=== PATIENT | male | born 1950 | race Caucasian/White ===

== ENCOUNTER 2018-10-29 13:04 | Observation (INO) ==
[2018-10-29] MEDS ORDERED: Ipratropium/Albuterol Neb 3 ML IH ONE (13:14)
[2018-10-29] MEDS ORDERED: predniSONE 20 MG TABLET PO ONE (13:14)
--- NOTE | 2018-10-29 13:17 | Emergency Department Note ---
Disposition Clinical Impression: Pneumonia, Congestive heart failure Disposition: Home, Self-Care Condition: Undetermined General Adult HPI - General Stated complaint: DEBBY Time Seen by Provider: 10/29/18 13:08 - Related Data Home Medications Medication Instructions Recorded Confirmed RX: Aspirin Enteric Coated 81 mg PO DAILY 09/04/15 10/29/18 [Aspirin EC] Simvastatin [Zocor] 40 mg PO HS 09/04/15 10/29/18 Levalbuterol Tartrate 2 puff IH Q4-6H 10/29/18 10/29/18 [Levalbuterol Tartrate Hfa] Metformin HCl 500 mg PO BID 10/29/18 10/29/18 RX: Sertraline [Zoloft] 100 mg PO DAILY 10/29/18 10/29/18 Rivaroxaban [Xarelto] 20 mg PO DAILY 10/29/18 10/29/18 Previous Rx's Medication Instructions Recorded RX: hydrOXYzine pamoate 50 mg PO TID PRN #15 cap 12/01/16 [HydrOXYzine Pamoate] RX: Metoprolol [Lopressor] 25 mg PO BID #60 tablet 10/16/18 RX: Omeprazole [PriLOSEC] 20 mg PO DAILY #30 cap 10/16/18 Allergies Allergy/AdvReac Type Severity Reaction Status Date / Time No Known Allergies Allergy Verified 06/19/17 08:19 Past Medical History - Past Medical History Medical history: Reports: arthritis, atrial fibrillation, diabetes, hyperlipidemia, myocardial infarction Surgical history: Reports: angioplasty/stent Psychiatric history: Reports: anxiety, depression - Social History Smoking Status: Current every day smoker Smokeless Tobacco Status: Yes Alcohol use: Reports: rarely Drug use: Reports: none Course Vital Signs Temperature 98.6 F 10/29/18 13:14 Pulse Rate 95 10/29/18 13:14 Respiratory Rate 18 10/29/18 13:14 Blood Pressure 122/91 10/29/18 13:14 O2 Sat by Pulse Oximetry 93 10/29/18 13:14 Temperature 98.1 F 10/29/18 17:30 Pulse Rate 115 10/29/18 17:30 Respiratory Rate 18 10/29/18 17:30 Blood Pressure 112/83 10/29/18 17:30 O2 Sat by Pulse Oximetry 90 10/29/18 17:30 Oxygen Delivery Oxygen Delivery Room Air Medical Decision Making - Lab Data Result diagrams: 10/29/18 13:23 10/29/18 13:23 Lab Results 10/29/18 10/29/18 10/29/18 Range/Units 13:20 13:20 13:23 WBC 10.4 (4.3-11.1) K/mcL RBC 4.15 L (4.19-5.50) M/mcL Hgb 12.9 (12.9-16.9) g/dL Hct 37.8 (37.5-50.1) % MCV 91.1 (83.0-100.0) fL MCH 31.1 (28.0-33.3) pg MCHC 34.1 (31.6-35.5) g/dL RDW 13.5 (11.5-14.5) % Plt Count 326 (140-400) K/mcL MPV 10.0 (9.4-12.4) fL Immature Gran % 0.4 (0-4) % Seg Neutrophils % 76.4 % Lymphocytes % 13.5 % Monocytes % 8.5 % Eosinophils % 0.7 % Basophils % 0.5 % Neutrophils # 8.0 (1.6-8.9) K/mcL Lymphocytes # 1.4 (0.6-4.6) K/mcL Monocytes # 0.9 (0.0-1.3) K/mcL Eosinophils # 0.1 (0.0-0.6) K/mcL Basophils # 0.1 (0.0-0.2) K/mcL D-Dimer 593 H (0-500) ng/mLFEU Sodium (136-145) mEq/L Potassium (3.5-5.1) mEq/L Chloride (98-107) mEq/L Carbon Dioxide (23-29) mEq/L BUN (8-23) mg/dL Creatinine (0.70-1.30) mg/dL Est GFR ( Amer) (> 60) Est GFR (Non-Af Amer) (> 60) BUN/Creatinine Ratio (6-26) Glucose (70-105) mg/dL Calculated Osmolality (280-300) Calcium (8.6-10.3) mg/dL Troponin I (< 0.04) ng/mL B-Natriuretic Peptide 671 H (Less than 100) pg/mL 12/01/18 Range/Units 13:23 WBC (4.3-11.1) K/mcL RBC (4.19-5.50) M/mcL Hgb (12.9-16.9) g/dL Hct (37.5-50.1) % MCV (83.0-100.0) fL MCH (28.0-33.3) pg MCHC (31.6-35.5) g/dL RDW (11.5-14.5) % Plt Count (140-400) K/mcL MPV (9.4-12.4) fL Immature Gran % (0-4) % Seg Neutrophils % % Lymphocytes % % Monocytes % % Eosinophils % % Basophils % % Neutrophils # (1.6-8.9) K/mcL Lymphocytes # (0.6-4.6) K/mcL Monocytes # (0.0-1.3) K/mcL Eosinophils # (0.0-0.6) K/mcL Basophils # (0.0-0.2) K/mcL D-Dimer (0-500) ng/mLFEU Sodium 129 L (136-145) mEq/L Potassium 4.6 (3.5-5.1) mEq/L Chloride 99 (98-107) mEq/L Carbon Dioxide 22 L (23-29) mEq/L BUN 20 (8-23) mg/dL Creatinine 0.84 (0.70-1.30) mg/dL Est GFR ( Amer) > 60 (> 60) Est GFR (Non-Af Amer) > 60 (> 60) BUN/Creatinine Ratio 24 (6-26) Glucose 135 H (70-105) mg/dL Calculated Osmolality 273 L (280-300) Calcium 9.1 (8.6-10.3) mg/dL Troponin I < 0.03 (< 0.04) ng/mL B-Natriuretic Peptide (Less than 100) pg/mL Attestation Statement - Attestation Attestation: I examined this patient and my medical decision-making was reviewed with the Resident Physician. I agree with the documented findings, disposition and treatment plan as described except to the extent set forth below. [id number] time provided Patient arrives complaining of dyspnea. He has a long-standing history of smoking. He is not oxygen dependent. He states the symptoms have been present for months and he has a primary care appointment as an outpatient but cannot wait. He appears in no acute distress on exam
--- NOTE | 2018-10-29 13:30 | Emergency Department Note ---
Disposition Clinical Impression: Pneumonia Qualifiers: Pneumonia type: due to unspecified organism Laterality: right Lung location: lower lobe of lung Qualified Code(s): J18.1 - Lobar pneumonia, unspecified organism Congestive heart failure Qualifiers: Heart failure type: unspecified Heart failure chronicity: unspecified Qualified Code(s): I50.9 - Heart failure, unspecified Disposition: Home, Self-Care Condition: Undetermined Time of Disposition: 17:01 SOB HPI - General Chief Complaint: ED Shortness of Breath/Dyspnea Stated Complaint: DEBBY Time Seen by Provider: 10/29/18 13:08 Source: patient Limitations: no limitations - History of Present Illness Patient is a 58-year-old male was recently diagnosed with A. fib was returned to the emergency room for shortness of breath. He states that his symptoms have been ongoing for 3 weeks. No acute changes recently. He states that he is unable to ambulate without getting severely short of breath. He states that he is a smoker and was told that he has COPD, recent start on inhaler. States that it is not helping. Denies any fevers or chills. He is on anticoagulation was relatively was A. zenon. Patient is currently not in acute respiratory distress. Denies any chest pain at this time, admits to palpitations. - Related Data Home Medications Medication Instructions Recorded Confirmed Aspirin Enteric Coated [Aspirin EC] 81 mg PO DAILY 09/04/15 10/29/18 Simvastatin [Zocor] 40 mg PO HS 09/04/15 10/29/18 Levalbuterol Tartrate 2 puff IH Q4-6H 10/29/18 10/29/18 [Levalbuterol Tartrate Hfa] Metformin HCl 500 mg PO BID 10/29/18 10/29/18 Rivaroxaban [Xarelto] 20 mg PO DAILY 10/29/18 10/29/18 Sertraline [Zoloft] 100 mg PO DAILY 10/29/18 10/29/18 Previous Rx's Medication Instructions Recorded hydrOXYzine pamoate [HydrOXYzine 50 mg PO TID PRN #15 cap 12/01/16 Pamoate] Metoprolol [Lopressor] 25 mg PO BID #60 tablet 10/16/18 Omeprazole [PriLOSEC] 20 mg PO DAILY #30 cap 10/16/18 Allergies Allergy/AdvReac Type Severity Reaction Status Date / Time No Known Allergies Allergy Verified 06/19/17 08:19 All systems ED: reviewed and negative except as stated. Past Medical History - Past Medical History Medical history: Reports: arthritis, atrial fibrillation, diabetes, hyperlipidemia, myocardial infarction Surgical history: Reports: angioplasty/stent Psychiatric history: Reports: anxiety, depression - Social History Smoking Status: Current every day smoker Smokeless Tobacco Status: Yes Alcohol use: Reports: rarely Drug use: Reports: none Physical Exam - General Limitations: no limitations General appearance: alert - Head Head exam: atraumatic - Eye Eye exam: Present: normal appearance - Neck Neck exam: Present: trachea midline - Chest Chest inspection: Present: normal inspection, symmetric chest wall rise - Respiratory Respiratory exam: Present: other (Audible lung sounds bilaterally, no wheezes rales or rhonchi.) - Cardiovascular Cardiovascular exam: Present: regular rate, normal rhythm, +S1, +S2 - Abdominal Exam Abdominal exam: Present: soft, Non-Tender - Extremities Exam Extremities exam: Present: normal inspection - Neurological Exam Neurological exam: Present: alert, oriented X3 - Psychiatric Psychiatric exam: Present: normal affect, normal mood - Skin Skin exam: Present: warm, dry, intact Course Course Narrative: 13:30 68-year-old male with recent diagnosed A. fib with RVR presenting to the emergency department for 3 week history of shortness of breath. This is unchanged from his previous visit. He has profound exertional dyspnea. Patient states that he has been diagnosed with COPD in the past recently started on an inhaler. He also states that he has had a history of MIs but does not know if he has CHF. No history of PEs or DVTs, no history of malignancy, and no history of recent surgery mobilization. Will obtain cardiac workup along with checking for BNP and a d-dimer as well patient will get a breathing treatment and we w ill assess for response. His saturations on room air were 93%, He is currently saturating well on room air. 14:02 Age-adjusted d-dimer is negative. Patient has a hyponatremia of 129. Pending BNP. 14:51 Chest x-ray shows effusion on the right, possible underlying pneumonia cannot be excluded. Patient will be admitted to the hospitalist service and started on antibiotics. 15:08 Hospitalist accepted the admission. Patient was started to desaturate into the upper 80s. He was placed on 2 L O2 via nasal cannula and his saturations increased. Vital Signs Temperature 98.6 F 10/29/18 13:14 Pulse Rate 95 10/29/18 13:14 Respiratory Rate 18 10/29/18 13:14 Blood Pressure 122/91 10/29/18 13:14 O2 Sat by Pulse Oximetry 93 10/29/18 13:14 Temperature 98.6 F 10/29/18 13:14 Pulse Rate 60 10/29/18 15:56 Respiratory Rate 18 10/29/18 15:56 Blood Pressure 116/92 10/29/18 15:56 O2 Sat by Pulse Oximetry 91 10/29/18 15:56 Oxygen Delivery Oxygen Delivery Room Air Shortness of Breath/Dyspnea - MDM Narrative Medical decision making narrative: 68-year-old male with recent onset A. fib present for increased shortness of breath. Patient was afebrile, hemodynamically stable, and saturating low 90s in the emergency department on room air. No leukocytosis on labs. Chest x-ray revealed vascular congestion, right-sided pleural effusion with possible underlying atelectasis versus pneumonia. Patient is given 40 IV Lasix and start antibiotic therapy. He was admitted to the hospital in stable condition. - Lab Data Result diagrams: 10/29/18 13:23 10/29/18 13:23 Lab Results 10/29/18 10/29/18 10/29/18 Range/Units 13:20 13:20 13:23 WBC 10.4 (4.3-11.1) K/mcL RBC 4.15 L (4.19-5.50) M/mcL Hgb 12.9 (12.9-16.9) g/dL Hct 37.8 (37.5-50.1) % MCV 91.1 (83.0-100.0) fL MCH 31.1 (28.0-33.3) pg MCHC 34.1 (31.6-35.5) g/dL RDW 13.5 (11.5-14.5) % Plt Count 326 (140-400) K/mcL MPV 10.0 (9.4-12.4) fL Immature Gran % 0.4 (0-4) % Seg Neutrophils % 76.4 % Lymphocytes % 13.5 % Monocytes % 8.5 % Eosinophils % 0.7 % Basophils % 0.5 % Neutrophils # 8.0 (1.6-8.9) K/mcL Lymphocytes # 1.4 (0.6-4.6) K/mcL Monocytes # 0.9 (0.0-1.3) K/mcL Eosinophils # 0.1 (0.0-0.6) K/mcL Basophils # 0.1 (0.0-0.2) K/mcL D-Dimer 593 H (0-500) ng/mLFEU Sodium (136-145) mEq/L Potassium (3.5-5.1) mEq/L Chloride (98-107) mEq/L Carbon Dioxide (23-29) mEq/L BUN (8-23) mg/dL Creatinine (0.70-1.30) mg/dL Est GFR ( Amer) (> 60) Est GFR (Non-Af Amer) (> 60) BUN/Creatinine Ratio (6-26) Glucose (70-105) mg/dL Calculated Osmolality (280-300) Calcium (8.6-10.3) mg/dL Troponin I (< 0.04) ng/mL B-Natriuretic Peptide 671 H (Less than 100) pg/mL 10/29/18 Range/Units 13:23 WBC (4.3-11.1) K/mcL RBC (4.19-5.50) M/mcL Hgb (12.9-16.9) g/dL Hct (37.5-50.1) % MCV (83.0-100.0) fL MCH (28.0-33.3) pg MCHC (31.6-35.5) g/dL RDW (11.5-14.5) % Plt Count (140-400) K/mcL MPV (9.4-12.4) fL Immature Gran % (0-4) % Seg Neutrophils % % Lymphocytes % % Monocytes % % Eosinophils % % Basophils % % Neutrophils # (1.6-8.9) K/mcL Lymphocytes # (0.6-4.6) K/mcL Monocytes # (0.0-1.3) K/mcL Eosinophils # (0.0-0.6) K/mcL Basophils # (0.0-0.2) K/mcL D-Dimer (0-500) ng/mLFEU Sodium 129 L (136-145) mEq/L Potassium 4.6 (3.5-5.1) mEq/L Chloride 99 (98-107) mEq/L Carbon Dioxide 22 L (23-29) mEq/L BUN 20 (8-23) mg/dL Creatinine 0.84 (0.70-1.30) mg/dL Est GFR ( Amer) > 60 (> 60) Est GFR (Non-Af Amer) > 60 (> 60) BUN/Creatinine Ratio 24 (6-26) Glucose 135 H (70-105) mg/dL Calculated Osmolality 273 L (280-300) Calcium 9.1 (8.6-10.3) mg/dL Troponin I < 0.03 (< 0.04) ng/mL B-Natriuretic Peptide (Less than 100) pg/mL - EKG Data EKG attestation: Yes I reviewed and interpreted this EKG. EKG results narrative: EKG shows A. fib with a heart rate of 94. There is low voltage complexes in the extremity leads. Late R-wave progression. There is a left bundle branch block. No significant concordance or discordance. No acute ST elevations. There is ST depressions present in leads V5 and V6. There are unchanged from previous EKG. All EKG findings similar to previous EKG.
[2018-10-29 13:38] LABS: Basophils # 0.1 K/mcL (0.0-0.2); Basophils % 0.5 %; Eosinophils # 0.1 K/mcL (0.0-0.6); Eosinophils % 0.7 %; Hematocrit 37.8 % (37.5-50.1); Hemoglobin 12.9 g/dL (12.9-16.9); Immature Granulocytes % 0.4 % (0-4); Lymphocytes # 1.4 K/mcL (0.6-4.6); Lymphocytes % 13.5 %; Mean Corpuscular HGB Conc 34.1 g/dL (31.6-35.5); Mean Corpuscular Hemoglobin 31.1 pg (28.0-33.3); Mean Corpuscular Volume 91.1 fL (83.0-100.0); Monocytes # 0.9 K/mcL (0.0-1.3); Monocytes % 8.5 %; Platelet Count 326 K/mcL (140-400); Red Blood Count 4.15 M/mcL (4.19-5.50); Red Cell Distribution Width 13.5 % (11.5-14.5); Segmented Neutrophils % 76.4 %
[2018-10-29 14:00] LABS: BUN/Creatinine Ratio 24 (6-26); Blood Urea Nitrogen 20 mg/dL (8-23); Calcium 9.1 mg/dL (8.6-10.3); Carbon Dioxide 22 mEq/L (23-29); Chloride 99 mEq/L (98-107); Glucose 135 mg/dL (70-105); Osmolality,Calculated 273 (280-300); Potassium 4.6 mEq/L (3.5-5.1); Sodium 129 mEq/L (136-145); Troponin I < 0.03 ng/mL (< 0.04); eGFR For Non-African Americans > 60 (> 60)
[2018-10-29] MEDS ORDERED: cefTRIAXone 1,000 MG in Water for inj. (sterile) 20 ML 10 ML IVP ONE (14:07)
[2018-10-29] MEDS ORDERED: Azithromycin 500 MG in D5% in Water 250 ML IVPB ONE (14:07)
[2018-10-29] MEDS ORDERED: Furosemide 40 MG/4 ML VIAL IVP ONE (14:53)
[2018-10-29] MEDS ORDERED: hydrOXYzine pamoate 25 MG CAPSULE PO PRN (15:38)
[2018-10-29] MEDS ORDERED: Dextrose Gel 15 GM/37.5 ML TUBE PO PRN ×2 (16:08)
[2018-10-29] MEDS ORDERED: D5% in Water 1,000 ML IVC PRN (16:08)
[2018-10-29] MEDS ORDERED: *HR* Dextrose 50 % in Water (Syg) 50 ML SYRINGE IVP PRN (16:08)
[2018-10-29] MEDS ORDERED: traMADol 50 MG TABLET PO PRN (16:09)
[2018-10-29] MEDS ORDERED: Naloxone 0.4 MG/ML INJ IVP PRN (16:09)
[2018-10-29] MEDS ORDERED: Acetaminophen 325 MG TABLET PO PRN (16:09)
[2018-10-29] MEDS ORDERED: *HR* Rivaroxaban 10 MG TABLET PO SCH (17:00)
--- NOTE | 2018-10-29 17:44 | Internal Med History&Physical ---
Date of Encounter: 10/29/18 Time of Encounter: 17:42 Internal Medicine - H&P: HPI Admitted From: Home Plans for Post Hospital Care: Home History of present illness: Mr. Hernandez is a 68 year old male Past Med Surg Social Fam HX - Past Medical History Medical history: arthritis, atrial fibrillation, diabetes, hyperlipidemia, myocardial infarction Additional medical history: DC Xs 3 Psychiatric history: anxiety, depression - Past Surgical History Surgical History: angioplasty/stent Additional surgical history: Stent Xs 2 - Social History Smoking Status: Current every day smoker Smokeless Tobacco Status: Yes Alcohol use: rarely Drug use: none Internal Medicine - H&P: Meds Aspirin Enteric Coated [Aspirin EC] 81 mg PO DAILY 09/04/15 [History] Simvastatin [Zocor] 40 mg PO HS 09/04/15 [History] hydrOXYzine pamoate [HydrOXYzine Pamoate] 50 mg PO TID PRN #15 cap 12/01/16 [Rx] Metoprolol [Lopressor] 25 mg PO BID #60 tablet 10/16/18 [Rx] Omeprazole [PriLOSEC] 20 mg PO DAILY #30 cap 10/16/18 [Rx] Levalbuterol Tartrate [Levalbuterol Tartrate Hfa] 2 puff IH Q4-6H 10/29/18 [History] Metformin HCl 500 mg PO BID 10/29/18 [History] Rivaroxaban [Xarelto] 20 mg PO DAILY 10/29/18 [History] Sertraline [Zoloft] 100 mg PO DAILY 10/29/18 [History] Allergy/AdvReac Type Severity Reaction Status Date / Time No Known Allergies Allergy Verified 06/19/17 08:19 All Systems PM: A 10-system review of systems was performed and is negative for pertinent find ings except as documented above in the HPI. Review of systems: REVIEW OF SYSTEMS: CONSTITUTIONAL: No weight loss, fever, chills, weakness or fatigue. HEENT: Eyes: No visual loss, blurred vision, double vision or yellow sclerae. Ears, Nose, Throat: No hearing loss, sneezing, congestion, runny nose or sore throat. SKIN: No rash or itching. CARDIOVASCULAR: No chest pain, chest pressure or chest discomfort. No palpitations or edema. RESPIRATORY: see HPI. GASTROINTESTINAL: No anorexia, nausea, vomiting or diarrhea. No abdominal pain or blood. GENITOURINARY: No dysuria, urgency, or frequency. NEUROLOGICAL: No headache, dizziness, syncope, paralysis, ataxia, numbness or tingling in the extremities. No change in bowel or bladder control. MUSCULOSKELETAL: No muscle, back pain, joint pain or stiffness. HEMATOLOGIC: No anemia, bleeding or bruising. LYMPHATICS: No enlarged nodes. No history of splenectomy. PSYCHIATRIC: No history of depression or anxiety. ENDOCRINOLOGIC: No reports of sweating, cold or heat intolerance. No polyuria or polydipsia. - Constitutional Vitals: Temp Pulse Resp BP Pulse Ox 98.1 F 115 18 112/83 90 10/29/18 17:30 10/29/18 17:30 10/29/18 17:30 10/29/18 17:30 10/29/18 17:30 General appearance: Present: cooperative, A&O X 3, answers questions appropriately Exam: PHYSICAL EXAMINATION: GENERAL APPEARANCE: The patient is alert, oriented and in no acute distress. HEENT: Head is normocephalic. The sinuses are nontender. Pupils are equal and reactive. The nares are patent. Oropharynx clear without lesions. NECK: Supple without lymphadenopathy. HEART: Regular rate and rhythm. LUNGS: decreased breathing sound on the right side. ABDOMEN: Soft, nontender, nondistended with good bowel sounds heard. Inguinal area is normal. EXTREMITIES: Without cyanosis, clubbing or edema. NEUROLOGICAL: Gross nonfocal. SKIN: Warm and dry without any rash. Internal Med - H&P Results - Labs CBC & Chem 7: 10/29/18 13:23 10/29/18 13:23 Labs: Short CBC 10/29/18 Range/Units 13:23 WBC 10.4 (4.3-11.1) K/mcL Hgb 12.9 (12.9-16.9) g/dL Hct 37.8 (37.5-50.1) % Plt Count 326 (140-400) K/mcL Neutrophils # 8.0 (1.6-8.9) K/mcL BMP 10/29/18 13:23 Sodium 129 L Potassium 4.6 Chloride 99 Carbon Dioxide 22 L BUN 20 Creatinine 0.84 Glucose 135 H Calcium 9.1 Cardiac Enzymes 10/29/18 Range/Units 13:23 Troponin I < 0.03 (< 0.04) ng/mL - Impressions ITS Impressions Chest X-Ray 10/29/18 13:13 IMPRESSION: 1. New, moderate right pleural effusion with associated consolidation in the right lung base. This is likely related to atelectasis, however, pneumonia cannot be excluded. 2. Increased pulmonary vascular congestion with stable cardiomegaly. D/ / 10/29/2018 14:24:42 Rubio Streeter MD / lilo Interpreting Provider: Rubio Streeter MD - Assessment and plan (1) Pneumonia Current Visit: Yes Status: Acute Assessment and plan: 68-year-old male current smoker presented with dyspnea and a cough for the past 3 weeks. Chest x-ray at the ED revealed right-sided consolidation with moderate amount of pleural effusion. Pneumonia was suspected, patient was started on IV azithromycin plus Rocephin. Qualifiers: Pneumonia type: due to unspecified organism Laterality: right Lung location: lower lobe of lung Qualified Code(s): J18.1 - Lobar pneumonia, unspecified organism (2) Congestive heart failure Current Visit: Yes Status: Suspected Assessment and plan: There is no CHF diagnoses on patient documentation. However, BNP was elevated, patient also has symptoms of CHF including congestion, dyspnea on exertion, pleural effusion, mild pitting edema on both lower extremities. We will check echocardiogram. Start patient on Lasix with twice a day dose. Qualifiers: Heart failure type: unspecified Heart failure chronicity: unspecified Qualified Code(s): I50.9 - Heart failure, unspecified (3) A-fib Current Visit: No Status: Chronic Assessment and plan: Rate controlled, continue home medication metoprolol, continue with Xarelto. Qualifiers: Atrial fibrillation type: chronic Qualified Code(s): I48.2 - Chronic atrial fibrillation (4) Diabetes mellitus Current Visit: No Status: Chronic Assessment and plan: Insulin SS, hold Metformin. Qualifiers: Diabetes mellitus type: type 2 Diabetes mellitus long term acute care registered nurse insulin use: without long term acute care registered nurse use Diabetes mellitus complication status: without complication Qualified Code(s): E11.9 - Type 2 diabetes mellitus without complications (5) Smoker Current Visit: No Status: Chronic (6) COPD (chronic obstructive pulmonary disease) Current Visit: No Status: Chronic Assessment and plan: continue home meds. Qualifiers: COPD type: unspecified COPD Qualified Code(s): J44.9 - Chronic obstructive pulmonary disease, unspecified (7) DVT prophylaxis Current Visit: Yes Status: Acute Assessment and plan: continue Xarelto. - Time Spent With Patient Total time spent is greater than 50% in coordination of care (as documented) at patient's floor/unit and/or counseling patient: Greater than 35 minutes
[2018-10-29] MEDS: Insulin LISPRO 300 UNITS/3 ML VIAL SQ SCH ×2 (18:02→22:08)
[2018-10-29] MEDS: Furosemide 20 MG/2 ML VIAL IVP SCH (21:46)
[2018-10-30 03:11] LABS: Basophils % 0.1 %; Hematocrit 39.9 % (37.5-50.1); Hemoglobin 13.5 g/dL (12.9-16.9); Immature Granulocytes % 0.4 % (0-4); Lymphocytes # 0.7 K/mcL (0.6-4.6); Lymphocytes % 6.6 %; Mean Corpuscular HGB Conc 33.8 g/dL (31.6-35.5); Mean Corpuscular Hemoglobin 30.8 pg (28.0-33.3); Mean Corpuscular Volume 91.1 fL (83.0-100.0); Mean Platelet Volume 10.3 fL (9.4-12.4); Monocytes # 0.6 K/mcL (0.0-1.3); Monocytes % 5.4 %; Neutrophils # 9.6 K/mcL (1.6-8.9); Platelet Count 344 K/mcL (140-400); Red Blood Count 4.38 M/mcL (4.19-5.50); Red Cell Distribution Width 13.2 % (11.5-14.5); Segmented Neutrophils % 87.5 %
[2018-10-30] MEDS: cefTRIAXone 2,000 MG in 0.9 % Sodium Chloride Mini Bag 100 ML IVPB SCH ×2 (03:15→15:22)
[2018-10-30 03:25] LABS: BUN/Creatinine Ratio 24 (6-26); Blood Urea Nitrogen 24 mg/dL (8-23); Calcium 9.3 mg/dL (8.6-10.3); Carbon Dioxide 26 mEq/L (23-29); Chloride 94 mEq/L (98-107); Glucose 258 mg/dL (70-105); Osmolality,Calculated 283 (280-300); Potassium 4.3 mEq/L (3.5-5.1); Sodium 130 mEq/L (136-145); eGFR For Non-African Americans > 60 (> 60)
[2018-10-30] MEDS ORDERED: Perflutren Lipid Microsphere 1.3 ML in 0.9 % Sodium Chloride 8.7 ML IVP ONE ×2 (07:43→08:15)
[2018-10-30] MEDS: Aspirin Enteric Coated 81 MG Tablet PO SCH (09:21)
[2018-10-30] MEDS: Insulin LISPRO 300 UNITS/3 ML VIAL SQ SCH ×4 (09:21→22:36)
[2018-10-30] MEDS: Furosemide 20 MG/2 ML VIAL IVP SCH ×2 (09:21→22:26)
[2018-10-30] MEDS: *HR* Rivaroxaban 10 MG TABLET PO SCH (09:21)
--- NOTE | 2018-10-30 13:46 | Internal Med Progress Note ---
Hospitalist Progress Note - Encounter Date of Encounter: 10/30/18 Time of Encounter: 13:44 - Subjective Interval History: Pt cough and sob have improved. - Exam Vitals: Temp Pulse Resp BP Pulse Ox 97.7 F 98 18 102/60 95 10/30/18 10:52 10/30/18 10:52 10/30/18 10:52 10/30/18 10:52 10/30/18 10:52 Exam: PHYSICAL EXAMINATION: GENERAL APPEARANCE: The patient is alert, oriented and in no acute distress. HEENT: Head is normocephalic. The sinuses are nontender. Pupils are equal and reactive. The nares are patent. Oropharynx clear without lesions. NECK: Supple without lymphadenopathy. HEART: Regular rate and rhythm. LUNGS: decreased breathing sound on the right side. ABDOMEN: Soft, nontender, nondistended with good bowel sounds heard. Inguinal area is normal. EXTREMITIES: Without cyanosis, clubbing or edema. NEUROLOGICAL: Gross nonfocal. SKIN: Warm and dry without any rash. - Assessment and Plan (1) Pneumonia Current Visit: Yes Status: Acute Assessment and Plan: 68-year-old male current smoker presented with dyspnea and a cough for the past 3 weeks. Chest x-ray at the ED revealed right-sided consolidation with moderate amount of pleural effusion. Pneumonia was suspected, continue IV azithromycin plus Rocephin. (2) Congestive heart failure Current Visit: Yes Status: Suspected Assessment and Plan: There is no CHF diagnosed on patient documentation. However, BNP was elevated, patient also has symptoms of CHF including congestion, dyspnea on exertion, pleural effusion, mild pitting edema on both lower extremities. We will check echocardiogram. Start patient on Lasix with twice a day dose. (3) A-fib Current Visit: No Status: Chronic Assessment and Plan: Rate controlled, continue home medication metoprolol, continue with Xarelto. (4) Diabetes mellitus Current Visit: No Status: Chronic Assessment and Plan: Insulin SS, hold Metformin. (5) Smoker Current Visit: No Status: Chronic Assessment and Plan: smoking cessation discussed with patient. (6) COPD (chronic obstructive pulmonary disease) Current Visit: No Status: Chronic Assessment and Plan: continue home meds. (7) DVT prophylaxis Current Visit: Yes Status: Acute Assessment and Plan: continue Xarelto. - Time Spent with Patient Total time spent is greater than 50% in coordination of care (as documented) at patient's floor/unit and/or counseling patient: Greater than 35 minutes Plan of Care Discussed with: patient Internal Medicine: Result - Labs CBC & Chem 7: 10/30/18 02:44 10/30/18 02:44 Labs: Short CBC 10/30/18 Range/Units 02:44 WBC 11.0 (4.3-11.1) K/mcL Hgb 13.5 (12.9-16.9) g/dL Hct 39.9 (37.5-50.1) % Plt Count 344 (140-400) K/mcL Neutrophils # 9.6 H (1.6-8.9) K/mcL BMP 10/29/18 10/30/18 13:23 02:44 Sodium 129 L 130 L Potassium 4.6 4.3 Chloride 99 94 L Carbon Dioxide 22 L 26 BUN 20 24 H Creatinine 0.84 1.01 Glucose 135 H 258 H Calcium 9.1 9.3 Cardiac Enzymes 10/29/18 Range/Units 13:23 Troponin I < 0.03 (< 0.04) ng/mL - ABG Interpretation ABG results: PT/INR, D-dimer D-Dimer 593 ng/mLFEU (0-500) H 10/29/18 13:20 - Impressions Impressions Chest X-Ray 10/29/18 13:13 IMPRESSION: 1. New, moderate right pleural effusion with associated consolidation in the right lung base. This is likely related to atelectasis, however, pneumonia cannot be excluded. 2. Increased pulmonary vascular congestion with stable cardiomegaly. D/ / 10/29/2018 14:24:42 Rubio Streeter MD / lilo Interpreting Provider: Rubio Streeter MD Consult Discharge Plan - Plan Referrals: Ata Hodges MD [Primary Care Provider] - (1) Pneumonia Qualifiers: Pneumonia type: due to unspecified organism Laterality: right Lung location: lower lobe of lung Qualified Code(s): J18.1 - Lobar pneumonia, unspecified organism (2) Congestive heart failure Qualifiers: Heart failure type: unspecified Heart failure chronicity: unspecified Qualified Code(s): I50.9 - Heart failure, unspecified (3) A-fib Qualifiers: Atrial fibrillation type: chronic Qualified Code(s): I48.2 - Chronic atrial fibrillation (4) Diabetes mellitus Qualifiers: Diabetes mellitus type: type 2 Diabetes mellitus long term care administrator insulin use: without nursing home use Diabetes mellitus complication status: without complication Qualified Code(s): E11.9 - Type 2 diabetes mellitus without complications (6) COPD (chronic obstructive pulmonary disease) Qualifiers: COPD type: unspecified COPD Qualified Code(s): J44.9 - Chronic obstructive pulmonary disease, unspecified
[2018-10-30] MEDS ORDERED: Azithromycin 500 MG in D5% in Water 250 ML IVPB SCH (17:00)
[2018-10-31] MEDS: cefTRIAXone 2,000 MG in 0.9 % Sodium Chloride Mini Bag 100 ML IVPB SCH (03:19)
[2018-10-31 06:29] LABS: Basophils # 0.1 K/mcL (0.0-0.2); Basophils % 0.5 %; Eosinophils # 0.3 K/mcL (0.0-0.6); Eosinophils % 2.4 %; Hematocrit 39.8 % (37.5-50.1); Hemoglobin 13.2 g/dL (12.9-16.9); Immature Granulocytes % 0.3 % (0-4); Lymphocytes # 2.3 K/mcL (0.6-4.6); Lymphocytes % 21.8 %; Mean Corpuscular HGB Conc 33.2 g/dL (31.6-35.5); Mean Corpuscular Hemoglobin 30.8 pg (28.0-33.3); Mean Platelet Volume 10.3 fL (9.4-12.4); Monocytes # 0.9 K/mcL (0.0-1.3); Neutrophils # 6.9 K/mcL (1.6-8.9); Platelet Count 346 K/mcL (140-400); Red Blood Count 4.28 M/mcL (4.19-5.50); Red Cell Distribution Width 13.6 % (11.5-14.5)
[2018-10-31 07:07] LABS: BUN/Creatinine Ratio 25 (6-26); Blood Urea Nitrogen 27 mg/dL (8-23); Calcium 9.3 mg/dL (8.6-10.3); Carbon Dioxide 29 mEq/L (23-29); Chloride 93 mEq/L (98-107); Glucose 177 mg/dL (70-105); Osmolality,Calculated 283 (280-300); Potassium 4.4 mEq/L (3.5-5.1); Sodium 132 mEq/L (136-145); eGFR For Non-African Americans > 60 (> 60)
[2018-10-31] MEDS ORDERED: Furosemide 20 MG/2 ML VIAL IVP SCH (08:00)
[2018-10-31] MEDS: Insulin LISPRO 300 UNITS/3 ML VIAL SQ SCH ×4 (08:41→21:43)
[2018-10-31] MEDS ORDERED: Levalbuterol 1 PUFF INHALER IH PRN (08:57)
[2018-10-31] MEDS: Aspirin Enteric Coated 81 MG Tablet PO SCH (08:57)
[2018-10-31] MEDS: Furosemide 20 MG TABLET PO SCH (08:58)
[2018-10-31] MEDS: Azithromycin 250 MG TABLET PO SCH (08:58)
[2018-10-31] MEDS: *HR* Rivaroxaban 10 MG TABLET PO SCH (08:58)
--- NOTE | 2018-10-31 09:47 | Cardiology Consult Note ---
<Kailash Lam - Last Filed: 10/31/18 09:47> Date of Encounter: 10/31/18 Time of Encounter: 09:00 Assessment and Plan (1) Pneumonia Current Visit: Yes Status: Acute Per Cardiology: On antibiotics per primary service. Qualifiers: Pneumonia type: due to unspecified organism Laterality: right Lung location: lower lobe of lung Qualified Code(s): J18.1 - Lobar pneumonia, unspecified organism (2) Congestive heart failure Current Visit: Yes Status: Chronic Per Cardiology: Consult for concerns of new cardiac myopathy with EF currently 30-35%, however upon review of medical records echo from August 2010 showed EF 40%. Troponins negative. Chest pain-free. Already on Lasix 20mg by mouth daily. Euvolemic on exam. Will switch Lopressor to Toprol. Follow-up in outpatient setting as already planned-- can further eval if further ischemic eval would be warranted (possible stress test-- already ate today, CP free, and troponin negative) and can evaluate potential ICD in outpatient setting. Qualifiers: Heart failure type: unspecified Heart failure chronicity: unspecified Qualified Code(s): I50.9 - Heart failure, unspecified (3) A-fib Current Visit: No Status: Chronic Per Cardiology: Apparent new onset H fibrillation in outpatient setting a few weeks ago. On beta audra, currently rate controlled. Regarding long-term anticoagulation, has already been started on Xarelto 20 mg by mouth daily. Kidney function stable. Denies any active bleeding or blood loss. Qualifiers: Atrial fibrillation type: chronic Qualified Code(s): I48.2 - Chronic atrial fibrillation Discussion w patient/family: The assessment and plan as outlined above was discussed with the patient who expressed understanding and agreement. All questions were answered. Thank you for involving us in the care of your patient. Please call with any questions. History of Present Illness Consult date: 10/31/18 Requesting physician: Mena Gamez Consult reason: CHF Chief complaint: SOB History of present illness: Mr. Hernandez is a 68 year old male with a relevant past medical history of DM 2, CAD with reported 3 MIs in the past with last heart catheterization in 2005 and [facility], apparent new diagnosis of atrial fibrillation and started on anticoagulation of Xarelto by PCP a few weeks ago, cardiomyopathy, hyperlipidemia, nicotine abuse. Cardiology consult for concerns of new onset systolic cardiomyopathy. Patient reports the past 1-1/2 weeks increased shortness of breath at rest with difficulty laying flat. He reports had a few episodes of nausea with chills. Denies any vomiting, diarrhea, cough. Reports currently being treated for pneumonia. He denies any active bleeding or blood loss. Denies any palpitations, dizziness, syncope, falls. Reports recently started on blood th inner by PCP. He reports not seen by cardiology since his last catheterization in 2005 and has pending appointment tomorrow scheduled an outpatient setting with [place] [facility]. He denies any chest pain symptoms. He reports he continues to smoke one pack per day for 50 years, however has not the past one half weeks due to not feeling well. Past Med Surg Social Fam HX - Past Medical History Attestation: Yes The following information was validated with the patient. Source: patient, old records reviewed Medical history: arthritis, atrial fibrillation, diabetes, hyperlipidemia, myocardial infarction Additional medical history: UT Xs 3 Psychiatric history: anxiety, depression - Past Surgical History Surgical History: angioplasty/stent Additional surgical history: Stent Xs 2 - Social History Smoking Status: Current every day smoker Smokeless Tobacco Status: Yes Alcohol use: rarely Drug use: none Medications and Allergies Aspirin Enteric Coated [Aspirin EC] 81 mg PO DAILY 09/04/15 [History] Simvastatin [Zocor] 40 mg PO HS 09/04/15 [History] hydrOXYzine pamoate [HydrOXYzine Pamoate] 50 mg PO TID PRN #15 cap 12/01/16 [Rx] Metoprolol [Lopressor] 25 mg PO BID #60 tablet 10/16/18 [Rx] Omeprazole [PriLOSEC] 20 mg PO DAILY #30 cap 10/16/18 [Rx] Levalbuterol Tartrate [Levalbuterol Tartrate Hfa] 2 puff IH Q4-6H 10/29/18 [History] Metformin HCl 500 mg PO BID 10/29/18 [History] Rivaroxaban [Xarelto] 20 mg PO DAILY 10/29/18 [History] Sertraline [Zoloft] 100 mg PO DAILY 10/29/18 [History] Allergy/AdvReac Type Severity Reaction Status Date / Time No Known Allergies Allergy Verified 06/19/17 08:19 All Systems Review: The remainder of the systems were reviewed and are negative - Constitutional Constitutional: chills - Cardiovascular Cardiovascular: as per HPI, dyspnea at rest - Gastrointestinal Gastrointestinal: nausea Physical Examination Vital Signs, Last 4 Hours Temp Pulse Resp BP Pulse Ox 10/31/18 07:10 97.7 F 93 18 100/63 89 General: Conversant, No Apparent Distress HEENT: Atraumatic, Normocephaly, Mucus Membranes Moist Neck: No JVD, Normal carotid pulses Cardiac: Reg Rate and Rhythm, Normal S1 and S2, No Murmur Lungs: Normal Breath Sounds, No Wheeze, Rales, Rhonchi Neuro: Alert and responsive, No focal deficits noted Abdomen: Soft, Non-Tender Skin: No rashes noted on visualized skin Musculoskeletal: No Chest Wall Tenderness Extremities: No Clubbing, No Cyanosis, No Edema, Normal Pulses Results 10/31/18 05:38 10/31/18 05:38 Lab Results Laboratory Tests 10/29/18 10/29/18 10/31/18 13:20 13:23 05:38 Hgb 13.2 Hct 39.8 D-Dimer 593 H Creatinine Est GFR (Non-Af Amer) Troponin I < 0.03 B-Natriuretic Peptide 10/31/18 10/31/18 05:38 05:38 Hgb Hct D-Dimer Creatinine 1.06 Est GFR (Non-Af Amer) > 60 Troponin I B-Natriuretic Peptide 474 H ITS Impressions Chest X-Ray 10/29/18 13:13 IMPRESSION: 1. New, moderate right pleural effusion with associated consolidation in the right lung base. This is likely related to atelectasis, however, pneumonia cannot be excluded. 2. Increased pulmonary vascular congestion with stable cardiomegaly. D/ / 10/29/2018 14:24:42 Rubio Streeter MD / lilo Interpreting Provider: Rubio Streeter MD Echocardiogram 10/30/18 07:00 Impressions: Atrial fibrillation. LVEF 30-35%. Global and regional LV systolic dysfunction. Mildly dilated left ventricle. Indeterminate diastolic function. There is no LV thrombus. Definity echo contrast was used. Normal right ventricular structure and function. Severely dilated left atrium. Mild-moderate mitral regurgitation. Mild tricuspid regurgitation. Mild-moderate pulmonic regurgitation. Mild pulmonary hypertension. Echo 07/02/2008 scanned into [facility] records document LVEF 40%. Left Ventricular Wall Motion: Rest Echo Findings The apex, apical inferior, mid inferior, apical anterior, mid anterior, basal anterior, apical septal, mid inferior septal, basal inferior septal, apical lateral, mid anterior lateral, basal anterior lateral, mid anterior septal, mid inferior lateral, basal anterior septal and basal inferior lateral duff were hypokinetic. 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 Findings: Study Quality * Technically adequate exam. ECG Findings * Atrial fibrillation. Left Ventricle * LVEF 30-35%. * Mildly dilated left ventricle. * Indeterminate diastolic function. * There is no LV thrombus. * Definity echo contrast was used. Right Ventricle * Normal right ventricular structure and function. Left Atrium * Severely dilated left atrium. Right Atrium * Normal right atrial size. Aortic Valve * No aortic regurgitation. * Mildly calcified/thickened aortic valve leaflets. * Trileaflet aortic valve. * No aortic stenosis. Mitral Valve * Normal mitral valve structure. * No mitral stenosis. * Mild-moderate mitral regurgitation. Tricuspid Valve * Tricuspid valve not well visualized. * Mild tricuspid regurgitation. * Estimated RA pressure is 8 mmHg. * Estimated RVSP is 43 mmHg. * Mild pulmonary hypertension. Pulmonic Valve * Pulmonic valve is not well visualized. * No pulmonic stenosis. * Mild-moderate pulmonic regurgitation. Pulmonary Artery * Pulmonary artery not well visualized. Aorta * Normally sized aortic root. Pericardium * There is no pericardial effusion present. Interatrial Septum * No evidence of PFO by color Doppler. IVC * The IVC is not dilated. * < 50% respiratory change. Intake & Output 10/28/18 10/29/18 10/30/18 10/31/18 23:59 23:59 23:59 23:59 Intake Total 260 / 260 932 / 932 1000 / 1000 Output Total 550 / 550 Balance 260 / 260 382 / 382 1000 / 1000 Weight 81 kg 80.8 kg Active Medications Acetaminophen (Tylenol) 650 mg PO Q6HR PRN PRN Reason: Mild Pain/Fever Stop: 04/30/19 16:10 Aspirin (Aspirin Ec) 81 mg PO DAILY [facility] Stop: 05/01/19 09:01 Last Admin: 10/31/18 08:57 Dose: 81 mg Azithromycin (Zithromax) 500 mg PO Q24H [facility] Stop: 05/02/19 09:01 Last Admin: 10/31/18 08:58 Dose: 500 mg Dextrose/Water (Dextrose 50% (Syg)) 25 ml IVP AD PRN PRN Reason: Hypoglycemia Stop: 04/30/19 16:09 Furosemide (Lasix) 20 mg PO DAILY [facility] Stop: 05/02/19 09:01 Last Admin: 10/31/18 08:58 Dose: 20 mg Glucagon (Glucagen) 1 mg IM ONCE PRN PRN Reason: Hypoglycemia Stop: 04/30/19 16:09 Glucose (Gluctose) 15 gm PO ONCE PRN PRN Reason: Hypoglycemia Stop: 04/30/19 16:09 Glucose (Gluctose) 30 gm PO ONCE PRN PRN Reason: Hypoglycemia Stop: 04/30/19 16:09 Hydroxyzine Pamoate (Hydroxyzine Pamoate) 50 mg PO TID PRN PRN Reason: Anxiety Dextrose (Dextrose 5%) 1,000 mls @ 100 mls/hr IVC .Q10H PRN PRN Reason: HYPOGLYCEMIA Stop: 04/30/19 16:09 Ceftriaxone Sodium 2,000 mg/ (Sodium Chloride) 100 mls @ 200 mls/hr IVPB Q24H [facility] Stop: 05/02/19 13:01 Insulin Human Lispro (Humalog) 0 units SQ HS [facility]; Protocol Stop: 04/30/19 21:01 Last Admin: 10/30/18 22:36 Dose: Not Given Insulin Human Lispro (Humalog) 0 units SQ TIDAC [facility]; Protocol Stop: 04/30/19 16:31 Last Admin: 10/31/18 08:41 Dose: Not Given Levalbuterol HCl (Xopenex) 2 puff IH S6EROEL PRN PRN Reason: Shortness Of Breath/Wheezing Stop: 05/02/19 12:01 Metoprolol Tartrate (Lopressor) 25 mg PO BID [facility] Stop: 04/30/19 21:01 Last Admin: 10/31/18 08:58 Dose: 25 mg Naloxone HCl (Narcan) 0.4 mg IVP Q2MIN PRN PRN Reason: SEE COMMENTS Stop: 04/30/19 16:10 Omeprazole (Prilosec) 20 mg PO DAILY@0630 [facility]; Protocol Stop: 05/01/19 06:31 Last Admin: 10/31/18 05:33 Dose: 20 mg Rivaroxaban (Xarelto) 20 mg PO DAILY [facility] Stop: 04/30/19 17:01 Last Admin: 10/31/18 08:58 Dose: 20 mg Sertraline HCl (Zoloft) 100 mg PO DAILY [facility] Stop: 05/01/19 09:01 Last Admin: 10/31/18 08:58 Dose: 100 mg Simvastatin (Zocor) 40 mg PO HS [facility]; Protocol Stop: 04/30/19 21:01 Last Admin: 10/30/18 22:26 Dose: 40 mg Tramadol HCl (Ultram) 50 mg PO Q6HR PRN PRN Reason: Moderate Pain Stop: 04/30/19 16:10 - Imaging and Cardiology Echo: report reviewed - EKG Interpretation EKG results cardiology: personally reviewed (Cristobal yarbrough in the 90s), other (Telemetry reviewed with average heart rate 93 the past 12 hours) Consult Discharge Plan - Plan Referrals: Ata Hodges MD [Primary Care Provider] - 11/01/18 9:30 am (WEB REQUEST SENT ON 10/30/18) <Juana Junior - Last Filed: 10/31/18 15:11> Date of Encounter: 10/31/18 - Attending Attestation I examined this patient and my medical decision-making was reviewed with the ACOUSTIC INTELLIGENCE SPECIALIST. I agree with the documented findings, disposition and treatment plan as described. Mr. Hernandez presents with SOB being treated for PNA. Has known ischemic cardiomyopathy with chronic systolic CHF. Patient feeling well at bedside, wants to go home. Denies recent chest pain or palpitations. Breathing much better per patient. AAOx3, NAD Irregularly irregular on exam, breath sounds normal, no JVD, no LE edema Labs reviewed Echo done this admission reviewed Outside hospital records in [facility] reviewed Impression: 1. Chronic systolic CHF: Appears euvolemic on exam. Patient feels back to his baseline and wants to go home. LVEF 40% back in 2009 upon review of outside medical records in [facility]. Recent echo 30-35%. No new cardiac symptoms but with newly discovered atrial fibrillation. Recommend outpatient follow up and consideration of stress testing as outpatient. 2. Persistent atrial fibrillation; Newly discovered by PCP. Had Cardiology appointment tomorrow. Appears rate controlled. He is asymptomatic. Just started xarelto. Further recommendations regarding rate vs rhythm control to be done as outpatient. Will sign off. Please call with questions. Assessment and Plan Discussion w patient/family: The assessment and plan as outlined above was discussed with the patient and/or family members who expressed understanding and agreement. All questions were answered. Thank you for involving us in the care of your patient. Please call with any questions. History of Present Illness History of present illness: Mr. Hernandez is a 68 year old male All Systems Review: The remainder of the systems were reviewed and are negative Physical Examination Vital Signs, Last 4 Hours Pulse BP 10/31/18 12:11 60 128/79 Results 10/31/18 05:38 10/31/18 05:38 Lab Results 10/31/18 10/31/18 10/31/18 05:38 05:38 05:38 WBC 10.5 Hgb 13.2 Hct 39.8 Plt Count 346 Sodium 132 L Potassium 4.4 Chloride 93 L Carbon Dioxide 29 BUN 27 H Creatinine 1.06 Glucose 177 H Calcium 9.3 B-Natriuretic Peptide 474 H
[2018-10-31] MEDS ORDERED: cefTRIAXone 2,000 MG in 0.9 % Sodium Chloride Mini Bag 100 ML IVPB SCH (13:00)
--- NOTE | 2018-10-31 14:57 | Internal Med Progress Note ---
Hospitalist Progress Note - Encounter Date of Encounter: 10/31/18 Time of Encounter: 14:47 - Subjective Interval History: Patient lying comfortably in bed. Shortness of breath better. Does not have much urine output. Review of the lab. Denied fever chills nausea vomiting headache dizziness chest pain abdominal pain urinary bowel complaint. - Exam Vitals: Temp Pulse Resp BP Pulse Ox 98.0 F 60 18 128/79 93 10/31/18 10:52 10/31/18 12:11 10/31/18 10:52 10/31/18 12:11 10/31/18 10:52 Exam: PHYSICAL EXAMINATION: GENERAL APPEARANCE: The patient is alert, oriented and in no acute distress. HEENT: PERRL EOMI NECK: Supple HEART: Regular rate and rhythm. LUNGS: decreased breathing sound bibasilar ABDOMEN: Soft, nontender, nondistended with good bowel sounds heard. EXTREMITIES: No pedal edema NEUROLOGICAL: Grossly intact with no focal neurological deficit. Motor 5 x 5 in all 4 extremities. SKIN: Warm and dry without any rash. - Assessment and Plan (1) Congestive heart failure Current Visit: Yes Status: Chronic Assessment and Plan: There is no CHF diagnosed on patient documentation. However, BNP was elevated, patient also has symptoms of CHF including congestion, dyspnea on exertion, pleural effusion, mild pitting edema on both lower extremities. Echocardiogram EF 30-35% with global /regional hypokinesia, severe LAD, moderate MR and MA. Repeat BMP and chest x-ray ordered. Patient does not appear volume overloaded with low normal blood pressure therefore they stopped IV Lasix 20 mg twice a day and started Lasix 20 mg by mouth daily. A strict I&O's and daily weight. Cask Maker consulted. Patient may need a stress tests if cardiology advice (2) Pneumonia Current Visit: Yes Status: Acute Assessment and Plan: 68-year-old male current smoker presented with dyspnea and a cough for the past 3 weeks. Chest x-ray at the ED revealed right-sided consolidation with moderate amount of pleural effusion. Pneumonia was suspected, continue IV azithromycin plus Rocephin. (3) A-fib Current Visit: No Status: Chronic Assessment and Plan: Rate controlled, continue home medication metoprolol, continue with Xarelto. (4) Diabetes mellitus Current Visit: No Status: Chronic Assessment and Plan: Insulin SS, hold Metformin. (5) Smoker Current Visit: No Status: Chronic Assessment and Plan: smoking cessation discussed with patient. (6) COPD (chronic obstructive pulmonary disease) Current Visit: No Status: Chronic Assessment and Plan: Stable and does not appear exacerbation. continue home meds. (7) DVT prophylaxis Current Visit: Yes Status: Acute Assessment and Plan: continue Xarelto. - Time Spent with Patient Total time spent is greater than 50% in coordination of care (as documented) at patient's floor/unit and/or counseling patient: 25 - 35 minutes Plan of Care Discussed with: patient Internal Medicine: Result - Labs CBC & Chem 7: 10/31/18 05:38 10/31/18 05:38 Labs: Short CBC 10/31/18 Range/Units 05:38 WBC 10.5 (4.3-11.1) K/mcL Hgb 13.2 (12.9-16.9) g/dL Hct 39.8 (37.5-50.1) % Plt Count 346 (140-400) K/mcL Neutrophils # 6.9 (1.6-8.9) K/mcL BMP 10/31/18 05:38 Sodium 132 L Potassium 4.4 Chloride 93 L Carbon Dioxide 29 BUN 27 H Creatinine 1.06 Glucose 177 H Calcium 9.3 - ABG Interpretation ABG results: PT/INR, D-dimer D-Dimer 593 ng/mLFEU (0-500) H 10/29/18 13:20 Consult Discharge Plan - Plan Referrals: Ata Hodges MD [Primary Care Provider] - 11/01/18 9:30 am (WEB REQUEST SENT ON 10/30/18) (1) Congestive heart failure Qualifiers: Heart failure type: unspecified Heart failure chronicity: unspecified Qualified Code(s): I50.9 - Heart failure, unspecified (2) Pneumonia Qualifiers: Pneumonia type: due to unspecified organism Laterality: right Lung location: lower lobe of lung Qualified Code(s): J18.1 - Lobar pneumonia, unspecified or ganism (3) A-fib Qualifiers: Atrial fibrillation type: chronic Qualified Code(s): I48.2 - Chronic atrial fibrillation (4) Diabetes mellitus Qualifiers: Diabetes mellitus type: type 2 Diabetes mellitus correction insulin use: without utility pipe layer use Diabetes mellitus complication status: without complication Qualified Code(s): E11.9 - Type 2 diabetes mellitus without complications (6) COPD (chronic obstructive pulmonary disease) Qualifiers: COPD type: unspecified COPD Qualified Code(s): J44.9 - Chronic obstructive pulmonary disease, unspecified
--- NOTE | 2018-10-31 16:03 | Electrocardiograph Report ---
[place] [id number] Test Date: 2018-10-29 Pat Name: Horacio Hernandez Department: [id number] Room: 2A16 Gender: M House Carpenter: : 1950 Requested By: Todd Mccarthy Order Number: [id number] Reading MD: Sophy Andrews Measurements Intervals [place] Rate: 94 P: NH: QRS: -64 QRSD: 116 T: 165 QT: 361 QTc: 452 Interpretive Statements Atrial fibrillation Nonspecific IVCD with LAD Low voltage, extremity leads Nonspecific T abnormalities, lateral leads Electronically Signed On 10-31-2018 16:02:25 EST by Sophy Andrews
[2018-11-01] MEDS ORDERED: Regadenoson 0.4 MG/5 ML SYRINGE IVP ONE (05:30)
[2018-11-01] MEDS ORDERED: Metoprolol XL (24 HR) Succ 50 MG TAB.ER.24H PO SCH (09:00)
[2018-11-01] MEDS: Insulin LISPRO 300 UNITS/3 ML VIAL SQ SCH ×2 (09:29→11:58)
[2018-11-01] MEDS: Azithromycin 250 MG TABLET PO SCH (09:45)
[2018-11-01] MEDS: Furosemide 20 MG TABLET PO SCH (09:45)
[2018-11-01] MEDS: *HR* Rivaroxaban 10 MG TABLET PO SCH (09:45)
[2018-11-01] MEDS: Aspirin Enteric Coated 81 MG Tablet PO SCH (09:45)
[2018-11-01 10:00] LABS: BUN/Creatinine Ratio 22 (6-26); Blood Urea Nitrogen 19 mg/dL (8-23); Calcium 9.1 mg/dL (8.6-10.3); Carbon Dioxide 31 mEq/L (23-29); Chloride 93 mEq/L (98-107); Glucose 146 mg/dL (70-105); Osmolality,Calculated 273 (280-300); Potassium 4.6 mEq/L (3.5-5.1); Sodium 129 mEq/L (136-145); eGFR For Non-African Americans > 60 (> 60)
[2018-11-01 11:17] VITALS: BP 101/66
--- NOTE | 2018-11-01 11:19 | Event Note ---
Date of Encounter: 11/01/18 Time of Encounter: 11:10 - Cardiology Event Note Stress test results noted: Impression: No ischemia on perfusion study. Extensive anterior and inferior infarct present on perfusion study (fixed mid-basal anterior/anteroseptal and inferior/mid inferolateral perfusion defect of large size and moderate to severe intensity). Stress LVEF 21 %. Dilated left ventricle. Pharmacologic stress ECG non-diagnostic for ischemia, occasional PVCs at rest and throughout stress test. Cardiology consult team notified. Discussed and reviewed with Dr. Junior, no active ischemia on stress test. Follow-up with cardiology as outpatient as previously planned.
[2018-11-01] MEDS ORDERED: Cefdinir 300 MG CAPSULE PO SCH (12:00)
--- NOTE | 2018-11-01 12:07 | Discharge Summary ---
- NOTES TO OUTPATIENT PROVIDER Notes to Outpatient Provider: Follow-up with cardiology in 1 week. Follow with PCP within 3 days-possible repeat chest x-ray to monitor pleural effusion especially if patient symptomatic.Monitor BMP-for electrolyte imbalance. Monitor BP and further adjustment in diuretic dose. DIEGO inhibitor can be con sidered as per PCP decision and BP tolerate. Follow with basketball referee in 1-2 weeks. Follow-up lab reports TSH, cortisol, urine and serum osmolality with PCP or nephrology Orders not resulted at time of discharge: Pending orders 10/29/18 16:12 Culture,Sputum with Gram Stain [RM] Routine 11/01/18 08:00 NM vernell perf SPECT multi [NM] Routine 11/02/18 04:00 Complete Blood Count [HEME] Routine Date of Encounter: 11/01/18 Time of Encounter: 14:41 - Discharge Diagnosis (1) Hyponatremia Priority: Primary Status: Acute Assessment and Plan: Could be chronic as no previous lab available to compare with. On admission sodium level was 129 and went up to 132 then again back to 129. No associated neurological symptoms. Consulted nephrology who ordered serum cortisol, TSH, urine and serum muscularity and recommended to follow results on OPD basis with PCP or nephrology and okay to discharge today.. Follow-up with nephrology in 1- 2 weeks. (2) Congestive heart failure Priority: Primary Status: Chronic Assessment and Plan: Newly diagnosed. Echocardiogram EF 30-35% with global /regional hypokinesia, severe LAD, moderate MR and CA. Nucleus cardiac stress tests ordered with finding of no active ischemia but extensive anterior and inferior infarct appear old, a stress LVEF 21% dilated left ventricle. Spoon Maker's okay to discharge patient from cardiology standpoint with follow-up appointment outpatient in 1 week. Will discharge patient on aspirin, beta audra, statin and low-dose diuretic Lasix 20 mg daily as blood pressure running low normal. DIEGO inhibitor did not a started as blood pressure running low normal and it will be decided by cardiology on OPD basis. Education about daily weight, fluid restriction less than 1500 mL per hour, cardiac diet was given Qualifiers: Heart failure type: unspecified Heart failure chronicity: unspecified Qualified Code(s): I50.9 - Heart failure, unspecified (3) Pneumonia Priority: Primary Status: Acute Assessment and Plan: Right-sided consolidation on chest x-ray. A started Rocephin and Zithromax. Patient improving clinically therefore will discharge patient on oral Zithromax 250 mg in a day to complete course tomorrow along with Omnicef 300 mg by mouth twice a day for 3 more days. Qualifiers: Pneumonia type: due to unspecified organism Laterality: right Lung location: lower lobe of lung Qualified Code(s): J18.1 - Lobar pneumonia, unspecified organism (4) A-fib Priority: Secondary Status: Chronic Assessment and Plan: Rate controlled, continue home medication metoprolol, continue with Xarelto. Qualifiers: Atrial fibrillation type: chronic Qualified Code(s): I48.2 - Chronic atrial fibrillation (5) Diabetes mellitus Priority: Secondary Status: Chronic Assessment and Plan: Continue home medicine Qualifiers: Diabetes mellitus type: type 2 Diabetes mellitus dedicated intermodal truck driver insulin use: without dedicated intermodal truck driver use Diabetes mellitus complication status: without complication Qualified Code(s): E11.9 - Type 2 diabetes mellitus without complications (6) Smoker Priority: Secondary Status: Chronic Assessment and Plan: smoking cessation discussed with patient and resources made available. (7) COPD (chronic obstructive pulmonary disease) Priority: Secondary Status: Chronic Assessment and Plan: Stable and does not appear exacerbation. continue home meds. Qualifiers: COPD type: unspecified COPD Qualified Code(s): J44.9 - Chronic obstructive pulmonary disease, unspecified Hospital course: Mr. Hernandez is a 68 year old male patient got admitted for shortness of breath, cough and lower extremity edema. During admission right-sided pneumonia, new onset CHF was found. Dual IV antibiotic coverage and IV diuretic cause started. Spoon Maker was consulted. Kiln Feeder was consulted for low sodium level Please see details in diagnosis section of discharge summary. At the time of discharge patient hemodynamically stable, tolerating oral diet, ambulating no chest pain shortness of breath no lower extremity edema . Discharge discussed with: patient, nurse, social work - Time Spent with Patient Total time spent providing and/or coordinating discharge services: - Discharge Medications Prescriptions: Azithromycin [Zithromax] 250 mg PO Q24H #1 tablet Cefdinir [Omnicef] 300 mg PO BID #8 capsule Furosemide [Lasix] 20 mg PO DAILY #30 tablet Home Medications: Aspirin Enteric Coated [Aspirin EC] 81 mg PO DAILY 09/04/15 [History] Simvastatin [Zocor] 40 mg PO HS 10/07/15 [History] hydrOXYzine pamoate [HydrOXYzine Pamoate] 50 mg PO TID PRN #15 cap 12/01/16 [Rx] Metoprolol [Lopressor] 25 mg PO BID #60 tablet 10/16/18 [Rx] Omeprazole [PriLOSEC] 20 mg PO DAILY #30 cap 10/16/18 [Rx] Levalbuterol Tartrate [Levalbuterol Tartrate Hfa] 2 puff IH Q4-6H 10/29/18 [History] Metformin HCl 500 mg PO BID 10/29/18 [History] Rivaroxaban [Xarelto] 20 mg PO DAILY 10/29/18 [History] Sertraline [Zoloft] 100 mg PO DAILY 10/29/18 [History] Azithromycin [Zithromax] 250 mg PO Q24H #1 tablet 11/01/18 [Rx] Cefdinir [Omnicef] 300 mg PO BID #8 capsule 11/01/18 [Rx] Furosemide [Lasix] 20 mg PO DAILY #30 tablet 11/01/18 [Rx] Allergies/Adverse Reactions: Allergy/AdvReac Type Severity Reaction Status Date / Time No Known Allergies Allergy Verified 06/19/17 08:19 Date of admission: 10/29/18 15:12 Primary care physician: Ata Hodges MD Consults: 10/29/18 17:38 Consult to Nutrition [CONS] Routine Comment: Consulting Provider: NUTRITION Reason for Dietary Consult: MST Score 10/30/18 14:22 Consult to Cardiology [CONS] Routine Comment: Consulting Provider: Cardiology Criss Reason for Consult: Newly diagnosed systolic CHF Call Completed: Yes 11/01/18 11:27 Consult to Nephrology [CONS] Routine Consulting Provider: Kidney Criss/ABRAM/DK/BRAYAN Reason for Consult: Hyponatremia Call Completed: Yes - Constitutional Vitals: Temp Pulse Resp BP Pulse Ox 97.6 F 93 16 101/66 94 11/01/18 11:16 11/01/18 11:16 11/01/18 11:16 11/01/18 11:16 11/01/18 11:16 General appearance: Present: cooperative, A&O X 3, answers questions appropriately Exam: PHYSICAL EXAMINATION: GENERAL APPEARANCE: The patient is alert, oriented and in no acute distress. HEENT: PERRL EOMI NECK: Supple HEART: Regular rate and rhythm. LUNGS: Clear to auscultation bilaterally with slight decreased sound on right lower lobe-improving ABDOMEN: Soft, nontender, nondistended with good bowel sounds heard. EXTREMITIES: No pedal edema NEUROLOGICAL: Grossly intact with no focal neurological deficit. Motor 5 x 5 in all 4 extremities. SKIN: Warm and dry without any rash. - Patient Status Disposition: Home, Self-Care Condition: Fair Overall status at discharge: patient is progressing back to baseline - Discharge Instructions Follow Up With: Ata Hodges MD [Primary Care Provider] - 11/04/18 11:30 am (WEB REQUEST SENT ON 10/30/18) Willie Rosario [Partnered Physician] - 11/01/18 9:30 am - Diet and Activity Activity: as per the cardiac rehab, increase activity as tolerated Diet: low fat, low cholesterol
[2018-11-01] MEDS ORDERED: cefTRIAXone 2,000 MG in Water for inj. (sterile) 20 ML 20 ML IVP SCH (13:00)
--- NOTE | 2018-11-01 13:13 | Nephrology Consult Note ---
Date of Encounter: 11/01/18 Time of Encounter: 13:11 Assessment and Plan (1) Hyponatremia Current Visit: Yes Status: Acute - Unknown etiology at this time - Presented with a sodium level of 129; increased to 132, 129 today - We will draw labs: TSH, cortisol, urine osmolality, serum osmolality. Patient may still be discharged today from nephrology standpoint; lab results can be transmitted to either nephrology or PCP; recommend follow-up for lab results in the outpatient setting (2) Heart failure with reduced ejection fraction Current Visit: Yes Status: Acute - Patient has HFrEF as diagnosed on echocardiogram - TTE on 10/30/18 demonstrated the following: LVEF 30-35%, global/regional LV systolic dysfunction, atrial fibrillation, severely dilated left atrium, mildly dilated left ventricle, mild pulmonary hypertension, mild to moderate MR, VT. - Laboratory analysis on arrival demonstrated an elevated BNP at 671 - Presented with symptoms of congestion, dyspnea on exertion, bilateral lower extremity pitting edema - Patient underwent stress test - Cardiology is on board - Patient was initially on Lasix IV 20 mg twice a day; subsequently discontinued due to low BP Plan: - Lasix 20 mg by mouth daily - Strict Is and Os/daily weights Qualifiers: Qualified Code(s): I50.20 - Unspecified systolic (congestive) heart failure (3) Pneumonia Current Visit: Yes Status: Acute - Patient presented to the hospital with progressive shortness of breath for 3 weeks - No leukocytosis on laboratory analysis - CXR on presentation demonstrated the presence of a pleural effusion with po ssible underlying pneumonia - Patient was started on IV Rocephin and Zithromax - Recently changed to Omnicef Qualifiers: Qualified Code(s): J18.9 - Pneumonia, unspecified organism (4) A-fib Current Visit: No Status: Chronic - Management per primary team - Patient has been tachycardic in the last 24 hours - Continue home metoprolol and Xarelto Qualifiers: Atrial fibrillation type: chronic Qualified Code(s): I48.2 - Chronic atrial fibrillation (5) Diabetes mellitus Current Visit: No Status: Chronic - Management per primary team Qualifiers: Diabetes mellitus type: type 2 Diabetes mellitus long-term insulin use: without termination clerk use Diabetes mellitus complication status: without co mplication Qualified Code(s): E11.9 - Type 2 diabetes mellitus without co mplications History of Present Illness - History of Present Illness Horacio Hernandez is a 68-year-old male with a PMH of atrial fibrillation on Xarelto, arthritis, diabetes mellitus, hyperlipidemia, and 3 prior MIs who presented to [facility] ED on 10/29/18 with the chief complaint of shortness of breath. Patient reported progressive shortness of breath for the last 3 weeks. He reported difficulty ambulating without becoming short of breath. Patient has a recent diagnosis of COPD; was recently prescribed an inhaler. Reported that it did not help. He is not oxygen dependent. Long-standing history of smoking; one pack per day for 50 years. Patient was found to have hyponatremia on arrival at 129. Chest x-ray demonstrated pleural effusion on the right with a possible underlying pneumonia. Patient was admitted to the hospitalist service, and the subsequent started on antibiotics. Was also given 40 mg IV Lasix. Cardiology was consulted after echocardiogram demonstrated a reduced ejection fraction. Stress test was performed; demonstrated no ischemia on perfusion. They recommend outpatient evaluation for a possible ICD placement. Nephrology is consulted for the management of hyponatremia. Initial sodium level on arrival was 129. Sodium level reached a high of 132, subsequently decreased to 129. Patient was initially placed on 20 mg Lasix IV twice a day; this was subsequently decreased to 20 mg Lasix by mouth daily after patient developed low blood pressure. Patient seen and examined at bedside; he states that he is fee ling well. He denies having any headache, confusion, weakness, nausea, vomiting, fever, chills, chest pain, shortness of breath, or swelling. No further complaints at this time. Past Med Surg Social Fam HX - Past Medical History Medical history: arthritis, atrial fibrillation, diabetes, hyperlipidemia, myocardial infarction Additional medical history: OR Xs 3 Psychiatric history: anxiety, depression - Past Surgical History Surgical History: angioplasty/stent Additional surgical history: Stent Xs 2 - Social History Smoking Status: Current every day smoker Smokeless Tobacco Status: Yes Alcohol use: rarely Drug use: none Medications and Allergies Aspirin Enteric Coated [Aspirin EC] 81 mg PO DAILY 09/04/15 [History] Simvastatin [Zocor] 40 mg PO HS 09/04/15 [History] hydrOXYzine pamoate [HydrOXYzine Pamoate] 50 mg PO TID PRN #15 cap 12/01/16 [Rx] Metoprolol [Lopressor] 25 mg PO BID #60 tablet 10/16/18 [Rx] Omeprazole [PriLOSEC] 20 mg PO DAILY #30 cap 10/16/18 [Rx] Levalbuterol Tartrate [Levalbuterol Tartrate Hfa] 2 puff IH Q4-6H 10/29/18 [History] Metformin HCl 500 mg PO BID 10/29/18 [History] Rivaroxaban [Xarelto] 20 mg PO DAILY 10/29/18 [History] Sertraline [Zoloft] 100 mg PO DAILY 10/29/18 [History] Allergy/AdvReac Type Severity Reaction Status Date / Time No Known Allergies Allergy Verified 06/19/17 08:19 Review of Systems Constitutional: as per HPI, no chills, no lethargy, no malaise, no weakness Breasts: as per HPI Cardiovascular: as per HPI, no chest pain, no dyspnea, no leg edema Respiratory: as per HPI, no cough, no dyspnea Gastrointestinal: as per HPI, no abdominal pain Genitourinary Male: as per HPI, no dysuria Integumentary: as per HPI Neurological: as per HPI Exam - Vital Signs Vital signs: Initial Vital Signs Temp Pulse Resp BP Pulse Ox 98.6 F 95 18 122/91 93 10/29/18 13:14 10/29/18 13:14 10/29/18 13:14 10/29/18 13:14 10/29/18 13:14 Vital Signs - Last 8 Hours Temp Pulse Resp BP Pulse Ox 11/01/18 11:16 97.6 F 93 16 101/66 94 11/01/18 09:27 98.1 F 104 18 135/92 93 Intake and Output 10/31/18 11/01/18 11/01/18 23:59 07:59 15:59 Intake Total 120 / 120 0 / 0 Output Total 300 / 300 0 / 0 Balance -180 / -180 0 / 0 Intake: Oral 120 / 120 0 / 0 Output: Urine 300 / 300 0 / 0 Other: Weight 79.435 kg 79.435 kg Blood Glucose* 169 197 Patient Weight 11/01/18 23:59 Weight 79.435 kg - General Appearance Exam: Gen.: Alert and oriented 3, no acute distress Head: Atraumatic, normocephalic Neck: Supple, trachea midline, no JVD ENT: EOMI, PERRL, no scleral icterus Heart: Regular rate and rhythm, S1, S2, no murmurs, rubs, or gallops Lungs: Clear to auscultation bilaterally, no wheezes, rales, rhonchi Abdomen: Soft, nontender Extremities: No clubbing, cyanosis, or edema Psych: Normal affect, normal mood Skin: Dry, intact Results - Lab Results 10/31/18 05:38 11/01/18 09:21 Most recent lab results Calcium 9.1 mg/dL (8.6-10.3) 11/01/18 09:21 Consult Discharge Plan - Plan Referrals: Ata Hodges MD [Primary Care Provider] - 11/04/18 11:30 am (WEB REQUEST SENT ON 10/30/18) Willie Rosario [Partnered Physician] - 11/01/18 9:30 am
[2018-11-01 14:56] LABS: Thyroid Stimulating Hormone 2.998 mcIU/mL (0.340-5.600)
== END 2018-11-01 15:32 | disposition home or self-care (01) ==
LOC: EMEROOARM 13:04 → INTOOBSV 15:12 → 2ANU 15:12
PROVIDERS: ADMIT Internal Medicine Cardiovascular Disease; ATTEND Internal Medicine Cardiovascular Disease

== ENCOUNTER 2019-04-05 08:30 | Observation (INO) ==
--- NOTE | 2019-04-05 11:21 | History & Physical Report ---
Date of Encounter: 04/05/19 Time of Encounter: 11:18 24 Hour HP Update - Instructions Instructions: If the History and Physical is less than 30 days old and was completed prior to A.M. admission and or procedure and has NOT been updated on calendar day of procedure please complete this update prior to performing procedure. - Update Patient reports changes in Medical Condition: No Changes in examination, assessment, or condition: No Changes in Medication: No Preop tests/diagnostics Reviewed: Yes Surgery Remains Indicated: Yes - Pre-Operative Checklist Preoperative Checklist Indicated: Yes Prophylactic Antibiotic Ordered: No (Not indicated) Home Medications Include Beta Jamie: Yes Beta Jamie Taken Today (Day of Surgery): Yes Beta Jamie Taken Yesterday (Day Prior to Surgery): Yes Is VTE Prophylaxis Indicated?: NO - Attending Attestation Patient presented for planned LHC. Heparin bridging for coumadin recommended for known YA thrombus.Please see cardiology note from Dr. Rosario's office visit today. Pt currently denies chest pain.
[2019-04-05] MEDS ORDERED: Levalbuterol 1 PUFF INHALER IH PRN (11:33)
[2019-04-05] MEDS ORDERED: *HR* Heparin 5,000 UNIT/ML VIAL IVP PRN ×2 (11:35)
[2019-04-05] MEDS ORDERED: *HR* Heparin 5,000 UNIT/ML VIAL IVP ONE (11:35)
[2019-04-05] MEDS ORDERED: Heparin 25,000 UNIT/250 ML D5W 25,000 UNIT/250 ML IV.SOLN IVC SCH (11:45)
[2019-04-05 12:03] LABS: Hematocrit 40.1 % (37.5-50.1); Hemoglobin 13.4 g/dL (12.9-16.9); Mean Corpuscular HGB Conc 33.4 g/dL (31.6-35.5); Mean Corpuscular Hemoglobin 31.2 pg (28.0-33.3); Mean Corpuscular Volume 93.5 fL (83.0-100.0); Mean Platelet Volume 10.4 fL (9.4-12.4); Platelet Count 200 K/mcL (140-400); Red Blood Count 4.29 M/mcL (4.19-5.50); Red Cell Distribution Width 17.7 % (11.5-14.5)
[2019-04-05 12:14] LABS: INR 2.4; Prothrombin Time 27.2 Seconds (9.4-12.1)
[2019-04-05] MEDS ORDERED: *HR* Dextrose 50 % in Water (Syg) 50 ML SYRINGE IVP PRN (13:52)
[2019-04-05] MEDS ORDERED: Dextrose Gel 15 GM/37.5 ML TUBE PO PRN ×2 (13:52)
[2019-04-05] MEDS ORDERED: D5% in Water 1,000 ML IVC PRN (13:52)
[2019-04-05] MEDS: Insulin LISPRO 300 UNITS/3 ML VIAL SQ SCH (16:49)
[2019-04-05] MEDS ORDERED: 0.9 % Sodium Chloride 500 ML ONE (19:55)
[2019-04-06 00:40] LABS: Basophils % 0.4 %; Eosinophils # 0.4 K/mcL (0.0-0.6); Eosinophils % 5.7 %; Hematocrit 37.1 % (37.5-50.1); Hemoglobin 12.4 g/dL (12.9-16.9); Immature Granulocytes % 0.4 % (0-4); Lymphocytes # 2.2 K/mcL (0.6-4.6); Lymphocytes % 29.2 %; Mean Corpuscular HGB Conc 33.4 g/dL (31.6-35.5); Mean Corpuscular Hemoglobin 31.1 pg (28.0-33.3); Mean Platelet Volume 10.5 fL (9.4-12.4); Monocytes # 0.6 K/mcL (0.0-1.3); Monocytes % 8.4 %; Neutrophils # 4.2 K/mcL (1.6-8.9); Platelet Count 192 K/mcL (140-400); Red Blood Count 3.99 M/mcL (4.19-5.50); Red Cell Distribution Width 17.3 % (11.5-14.5); Segmented Neutrophils % 55.9 %
[2019-04-06 00:48] LABS: INR 2.4
--- NOTE | 2019-04-06 07:55 | Cardiology Progress Note ---
Date of Encounter: 04/06/19 Time of Encounter: 07:48 Assessment and Plan (1) CAD (coronary artery disease) Current Visit: Yes Status: Chronic Known CAD. [facility] 10/2018- 80% stenosis in the Mid LAD. 99% stenosis in the 1st Diagonal. 30% in-stent restenosis in the Proximal RCA. patient transferred to [facility] at that time for possible PCI. PCI was not recommended at that time. He was found to have YA thrombus on ABRAHAM, EF 20%. Due to ongoing low EF he is recommended at attempt of PCI to the LAD. The DX is decribed as highly tortuos. Qualifiers: Coronary Disease-Associated Artery/Lesion type: enterprise artery [place] vs. 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 Changed to coumadin 11/2018 due to YA thrombus. Goal INR 2.0-3.0. Heparin bridge recommended to start once INR 2.0 or less. INR 2.4 today and heparin held. (3) A-fib Current Visit: No Status: Chronic H/o afib, s/p BIV ICD and AV node ablation 12/2018 at [facility]. On coumadin for AC. EKG shows paced rhythm. Qualifiers: Atrial fibrillation type: paroxysmal Qualified Code(s): I48.0 - Paroxysmal atrial fibrillation (4) Ischemic cardiomyopathy Current Visit: Yes Status: Acute Known ICMP. EF 20% on last ABRAHAM at [facility] 12/2018. ICD implanted 12/2018. Discussion w patient/family: The assessment and plan as outlined above was discussed with the patient and/or family members who expressed understanding and agreement. All questions were answered. Thank you for involving us in the care of your patient. Please call with any questions. Subjective Principal diagnosis: CAD Interval history: Mr. Hernandez presented as a direct admit from the cardiology office yesterday to prepare for [facility]. [facility] recommended for known disease in the LAD. he has a left atrial thrombus and atrial fibrillation. He requires heparin bridge while holding coumadin. He denies chest pain. Objective General: Conversant, No Apparent Distress HEENT: Atraumatic, Normocephaly, Mucus Membranes Moist Neck: No JVD, Normal carotid pulses Cardiac: Reg Rate and Rhythm, Normal S1 and S2, No Murmur Lungs: Normal Breath Sounds, No Wheeze, Rales, Rhonchi Neuro: Alert and responsive, No focal deficits noted Abdomen: Soft, Non-Tender Skin: No rashes noted on visualized skin Musculoskeletal: No Chest Wall Tenderness Extremities: No Clubbing, No Cyanosis, No Edema, Normal Pulses Results 04/06/19 00:08 Lab Results 04/05/19 04/05/19 04/06/19 11:47 11:47 00:08 WBC 8.5 7.6 Hgb 13.4 12.4 L Hct 40.1 37.1 L Plt Count 200 192 INR 2.4 04/06/19 00:08 WBC Hgb Hct Plt Count INR 2.4 - EKG Interpretation EKG results cardiology: personally reviewed Consult Discharge Plan - Plan Referrals: Ata Hodges MD [Primary Care Provider] -
[2019-04-06 08:27] VITALS: BP 114/77
[2019-04-06] MEDS: Insulin LISPRO 300 UNITS/3 ML VIAL SQ SCH (08:50)
[2019-04-06] MEDS ORDERED: Metoprolol XL (24 HR) Succ 50 MG TAB.ER.24H PO SCH (09:00)
[2019-04-06] MEDS ORDERED: Furosemide 20 MG TABLET PO SCH (09:00)
[2019-04-06] MEDS ORDERED: Aspirin Enteric Coated 81 MG Tablet PO SCH (09:00)
[2019-04-06] MEDS ORDERED: *HR* Warfarin 5 MG TABLET PO ONE (10:02)
--- NOTE | 2019-04-06 10:05 | Discharge Summary ---
Orders not resulted at time of discharge: Pending orders 04/07/19 04:00 Prothrombin Time INR [COAG] AM 04004/08/19 04:00 Prothrombin Time INR [COAG] AM 39904/09/19 04:00 Prothrombin Time INR [COAG] AM 399 Date of Encounter: 04/06/19 Time of Encounter: 10:03 - Discharge Diagnosis (1) CAD (coronary artery disease) Priority: Primary Status: Chronic Qualifiers: Coronary Disease-Associated Artery/Lesion type: [place] artery [place] vs. transplanted heart: [place] heart Associated angina: without angina Qualified Code(s): I25.10 - Atherosclerotic heart disease of [place] coronary artery without angina pectoris (2) Atrial thrombus Priority: Primary Status: Chronic (3) A-fib Priority: Secondary Status: Chronic Qualifiers: Atrial fibrillation type: paroxysmal Qualified Code(s): I48.0 - Paroxysmal atrial fibrillation (4) Ischemic cardiomyopathy Priority: Secondary Status: Acute - Hospital Course Hospital course: Mr. Hernandez is a 68 year old male with history of known significant CAD, ICMP, at rial fibrillation, atrial thrombus, and BIV ICD s/p AV node ablation presented for planned LHC for severe LAD disease seen on LHC 10/2018 that was not intervened on. Pt would have required heparin bridge prior to procedure due to atrial thrombus. Today it was noted patient had cardiac MRI at [facility] earlier this year that revealed nonviable tissue in the LAD territory. This was not known previously and patient did not re call at f/u visit. LHC was cancelled and out- pt f/u recommended. Patient agrees with plan. Due to missed dose of coumadin patient took 5 mg today. He will continue his home dose of 4.5 mg daily except for wednesday he will take 3 mg. F/u with coumadin clinic will be scheduled early next week. INR 2.4 today. No other changes to medications. He denies chest pain. - Time Spent with Patient Total time spent providing and/or coordinating discharge services: Less than 30 minutes - Discharge Medications Prescriptions: Continued Lisinopril 2.5 mg PO DAILY Metformin HCl 1,000 mg PO BID Metoprolol Succinate 50 mg PO DAILY Albuterol Neb [Proventil Neb] 2.5 mg IH Q4HR PRN PRN Reason: Shortness Of Breath Rosuvastatin Calcium 20 mg PO HS Spironolactone 25 mg PO DAILY Warfarin [Coumadin] 3 mg PO QUEVEDO Warfarin [Coumadin] 4.5 mg PO MOTUWETHFRSA Aspirin Enteric Coated [Aspirin EC] 81 mg PO DAILY Home Medications: Aspirin Enteric Coated [Aspirin EC] 81 mg PO DAILY 09/04/15 [History] Lisinopril 2.5 mg PO DAILY 11/24/18 [History] Metformin HCl 1,000 mg PO BID 11/28/18 [History] Metoprolol Succinate 50 mg PO DAILY 11/28/18 [History] Albuterol Neb [Proventil Neb] 2.5 mg IH Q4HR PRN 04/05/19 [History] Rosuvastatin Calcium 20 mg PO HS 04/05/19 [History] Spironolactone 25 mg PO DAILY 04/05/19 [History] Warfarin [Coumadin] 3 mg PO QUEVEDO 04/05/19 [History] Warfarin [Coumadin] 4.5 mg PO MOTUWETHFRSA 04/05/19 [History] Allergies/Adverse Reactions: Allergy/AdvReac Type Severity Reaction Status Date / Time No Known Allergies Allergy Verified 11/28/18 14:42 Date of admission: 04/05/19 10:31 Primary care physician: Ata Hodges MD Consults: None Discharging clinician: Laurent Valenzuela Anticipated date of discharge: 04/06/19 Physical Examination Vital Signs, Last 4 Hours Temp Pulse Resp BP Pulse Ox 04/06/19 08:16 97.6 F 80 15 114/77 94 - Patient Status Disposition: Home, Self-Care Condition: Good Functional capacity at discharge: independent ambulation Overall status at discharge: other (No change from baseline) - Discharge Instructions Instructions: Coronary Artery Disease (DC) Follow Up With: anti-coagulation clinic [Other] - 04/11/19 1:15 pm ([facility] ) Ata Hodges MD [Primary Care Provider] - 04/12/19 11:30 am Additional Instructions: Follow-up appointments: If there is not an appointment listed below, please call your physician and schedule a follow-up appointment. If you have congestive heart failure and your symptoms return, make an appointment with your physician. Medication List: Carry an up to date list of medications you are taking at all time. We have given you an updated medication list including any new medications that you have been prescribed. Please provide that list to your primary provider Symptoms: If your condition changes or you experience any of the following symptoms, notify your physician immediately: Unusual or worsening pain, fever, persistent nausea and vomiting, bleeding, increase in swelling (especially in your legs), sudden weight gain, extreme dizziness, chest pain, increased drainage or redness from a wound or incision. Go to the emergency department if you experience a problem with breathing. Weights: If you have a history of swelling or shortness of breath, weigh yourself daily and notify your physician if you have a weight gain of two or more pounds in one day or 5 or more pounds in a week. If you experience any of the warning signs for stroke: Sudden numbness or weakness of the face, arm or leg; especially on one side of the body, sudden confusion, trouble speaking or understanding, sudden trouble seeing in one or both eyes, sudden trouble walking, dizziness, loss of balance or coordination, sudden sever headache with no cause; Call 911 or go to the emergency room. Stroke is a medical emergency. Some risk factors for stroke: Age, cigarette smoking, diabetes, excessive alcohol consumption, family history, high blood pressure, overweight, physical inactivity, prior stroke, heart attack, diagnosis of carotid artery stenosis or other artery disease. If you smoke, STOP: Smoking or tobacco use significantly increases your risk of heart and lung disease. Your chance of disease greatly increases if you continue to smoke. For more information, call the [place] tobacco quit line for smoking cessation 8-946-XBKJ-NOW ( ) - Diet and Activity Activity: increase activity as tolerated Diet: low fat, low cholesterol
== END 2019-04-06 11:58 | disposition home or self-care (01) ==
LOC: 3BNU
PROVIDERS: ADMIT Internal Medicine Cardiovascular Disease; ATTEND Internal Medicine Cardiovascular Disease

== ENCOUNTER 2019-12-03 13:12 | Observation (INO) ==
[2019-12-03] MEDS ORDERED: Ipratropium/Albuterol Neb 3 ML IH ONE (13:35)
[2019-12-03] MEDS ORDERED: methylPREDNISolone 125 MG/2 ML VIAL IVP ONE (13:35)
[2019-12-03] MEDS ORDERED: predniSONE 20 MG TABLET PO ONE (13:39)
[2019-12-03 14:01] LABS: Basophils % 0.4 %; Eosinophils # 0.1 K/mcL (0.0-0.6); Eosinophils % 1.2 %; Hematocrit 38.8 % (37.5-50.1); Hemoglobin 13.2 g/dL (12.9-16.9); Immature Granulocytes % 0.3 % (0-4); Lymphocytes # 1.3 K/mcL (0.6-4.6); Lymphocytes % 14.3 %; Mean Corpuscular Hemoglobin 31.2 pg (28.0-33.3); Mean Corpuscular Volume 91.7 fL (83.0-100.0); Mean Platelet Volume 10.5 fL (9.4-12.4); Monocytes # 0.7 K/mcL (0.0-1.3); Monocytes % 7.9 %; Platelet Count 208 K/mcL (140-400); Red Blood Count 4.23 M/mcL (4.19-5.50); Red Cell Distribution Width 14.1 % (11.5-14.5); Segmented Neutrophils % 75.9 %; White Blood Count 9.2 K/mcL (4.3-11.1)
[2019-12-03 14:21] LABS: BUN/Creatinine Ratio 17 (6-26); Blood Urea Nitrogen 17 mg/dL (8-23); Calcium 9.4 mg/dL (8.6-10.3); Carbon Dioxide 26 mEq/L (23-29); Chloride 101 mEq/L (98-107); Glucose 134 mg/dL (70-105); Osmolality,Calculated 284 (280-300); Sodium 135 mEq/L (136-145); eGFR For African Americans > 60 (> 60); eGFR For Non-African Americans > 60 (> 60)
[2019-12-03 14:22] LABS: Troponin I < 0.03 ng/mL (< 0.04)
[2019-12-03] MEDS ORDERED: Ondansetron 4 MG/2 ML VIAL IVP PRN (15:25)
[2019-12-03] MEDS ORDERED: Ondansetron ODT 4 MG TAB.RAPDIS SL PRN (15:25)
[2019-12-03] MEDS ORDERED: Azithromycin 500 MG in 0.9 % Sodium Chloride 250 ML IVPB SCH (16:00)
[2019-12-03] MEDS ORDERED: Albuterol 2.5 MG/3 ML NEBULIZER IH PRN (16:42)
[2019-12-03] MEDS ORDERED: Dextrose Gel 15 GM/37.5 ML TUBE PO PRN ×2 (16:45→16:59)
[2019-12-03] MEDS ORDERED: D5% in Water 1,000 ML IVC PRN (16:59)
[2019-12-03] MEDS ORDERED: *HR* Dextrose 50 % in Water (Syg) 50 ML SYRINGE IVP PRN (16:59)
[2019-12-03] MEDS: Ipratropium/Albuterol Neb 3 ML IH SCH ×3 (17:16→23:51)
[2019-12-03] MEDS: Insulin LISPRO 300 UNITS/3 ML VIAL SQ SCH (19:52)
[2019-12-03] MEDS: Loratadine 10 MG TABLET PO SCH (20:23)
[2019-12-03] MEDS: Fluticasone Propionate Nasal 50 MCG/SPRAY BOTTLE NS SCH (20:25)
[2019-12-03] MEDS ORDERED: Insulin LISPRO 300 UNITS/3 ML VIAL SQ SCH (21:00)
[2019-12-03 21:37] LABS: INR 2.6; Prothrombin Time 29.7 Seconds (9.4-12.1)
[2019-12-03 21:50] LABS: Adenovirus Not Detected (Not Detect); Bordetella Pertussis Not Detected (Not Detect); Chlamydophila pneumoniae Not Detected (Not Detect); Coronavirus 229E Not Detected (Not Detect); Coronavirus HKU1 Not Detected (Not Detect); Coronavirus NL63 Not Detected (Not Detect); Coronavirus OC43 Not Detected (Not Detect); Human Metapneumovirus Not Detected (Not Detect); Human Rhinovirus/Enterovirus Not Detected (Not Detect); Influenza A Subtype 2009 H1 Not Detected (Not Detect); Influenza B Not Detected (Not Detect); Mycoplasma pneumoniae Not Detected (Not Detect); Parainfluenza Virus 1 Not Detected (Not Detect); Parainfluenza Virus 2 Not Detected (Not Detect); Parainfluenza Virus 3 Not Detected (Not Detect); Parainfluenza Virus 4 Not Detected (Not Detect); Respiratory Syncytial Virus Not Detected (Not Detect)
[2019-12-04] MEDS: Ipratropium/Albuterol Neb 3 ML IH SCH ×3 (04:44→11:37)
[2019-12-04 05:33] LABS: Basophils % 0.1 %; Hematocrit 38.5 % (37.5-50.1); Hemoglobin 12.5 g/dL (12.9-16.9); Immature Granulocytes % 0.5 % (0-4); Lymphocytes # 0.5 K/mcL (0.6-4.6); Lymphocytes % 6.5 %; Mean Corpuscular HGB Conc 32.5 g/dL (31.6-35.5); Mean Corpuscular Volume 95.5 fL (83.0-100.0); Monocytes # 0.3 K/mcL (0.0-1.3); Monocytes % 3.7 %; Neutrophils # 7.3 K/mcL (1.6-8.9); Platelet Count 203 K/mcL (140-400); Red Blood Count 4.03 M/mcL (4.19-5.50); Segmented Neutrophils % 89.2 %; White Blood Count 8.2 K/mcL (4.3-11.1)
[2019-12-04 05:54] LABS: BUN/Creatinine Ratio 16 (6-26); Blood Urea Nitrogen 19 mg/dL (8-23); Calcium 9.3 mg/dL (8.6-10.3); Carbon Dioxide 25 mEq/L (23-29); Chloride 98 mEq/L (98-107); Glucose 258 mg/dL (70-105); Osmolality,Calculated 291 (280-300); Potassium 4.4 mEq/L (3.5-5.1); Sodium 135 mEq/L (136-145); eGFR For African Americans > 60 (> 60); eGFR For Non-African Americans 60 (> 60)
[2019-12-04 07:12] VITALS: BP 122/69
[2019-12-04] MEDS ORDERED: predniSONE 20 MG TABLET PO SCH (09:00)
[2019-12-04] MEDS ORDERED: Metoprolol XL (24 HR) Succ 50 MG TAB.ER.24H PO SCH (09:00)
[2019-12-04] MEDS ORDERED: Spironolactone 25 MG TABLET PO SCH (09:00)
[2019-12-04] MEDS ORDERED: Aspirin Enteric Coated 81 MG Tablet PO SCH (09:00)
[2019-12-04] MEDS: Insulin LISPRO 300 UNITS/3 ML VIAL SQ SCH (09:14)
[2019-12-04] MEDS: Loratadine 10 MG TABLET PO SCH (09:14)
[2019-12-04] MEDS: Fluticasone Propionate Nasal 50 MCG/SPRAY BOTTLE NS SCH (09:15)
[2019-12-04] MEDS ORDERED: Warfarin 2.5 MG, Warfarin 2 MG PO ONE (18:00)
[2019-12-04] MEDS ORDERED: Warfarin perPT PO PRN (18:00)
== END 2019-12-04 13:37 | disposition home or self-care (01) ==
LOC: EMEROOARM 13:12 → 3BNU 13:12 → SUATTDRO 17:42 → 3BNU 19:30
PROVIDERS: ADMIT Family Medicine; ATTEND Internal Medicine